=== PATIENT | male | born 1965 | race Caucasian/White ===

== ENCOUNTER 2018-06-15 07:49 | Day surgery (SDC) | payer OTHER ==
[2018-06-12 15:50] VITALS: BMI 29.7
[~2018-06-15 07:49] MED LIST: LACTATED RINGERS 1,000 ML IV SCH
[2018-06-15 09:05] VITALS: TEMP 97.8
[2018-06-15] MEDS ORDERED: LIDOCAINE 1% 20 ML VIAL (10MG/ML) FOR IV START INTRADERMA ONE (09:14)
[2018-06-15] MEDS ORDERED: PROPOFOL 10 MG/ML 20 ML VIAL IV ONE (09:54)
[2018-06-15] MEDS ORDERED: LIDOCAINE 1% INJ 10MG/ML (20 ML MDV) ONE (09:54)
--- NOTE | 2018-06-15 09:59 | P.GSHP ---
History of Present Illness H&P Date: 06/15/18 Chief Complaint: Colitis, GI bleed, abdominal pain This a 52-year-old male who presents today for colonoscopy. Patient history of colitis. He's had some intermittent rectal bleeding. He has had complaints of right left lower quadrant abdominal pain. Past Medical History Past Medical History: GERD/Reflux, Hyperlipidemia, Osteoarthritis (OA), Thyroid Disorder Additional Past Medical History / Comment(s): migraines, herniated disks, hx heart murmer, "bad acid reflux", ulcerative colitis, meghan schlatter disease History of Any Multi-Drug Resistant Organisms: None Reported Past Surgical History: Adenoidectomy, Ear Surgery, Orthopedic Surgery, Tonsillectomy Additional Past Surgical History / Comment(s): left knee to remove meghan schlatter disease, several tumors removed from back,legs and rib cage, Past Anesthesia/Blood Transfusion Reactions: Postoperative Nausea & Vomiting ( PONV) Smoking Status: Current every day smoker - Past Family History Mother Family Medical History: Cancer Father Family Medical History: Cancer Medications and Allergies Home Medications Medication Instructions Recorded Confirmed Type Albuterol Nebulizer(Dose Unkn) 1 applicate IH DAILY PRN 06/12/18 06/12/18 History Aspirin 325 mg PO DAILY PRN 06/12/18 06/12/18 History Diazepam [Valium] 10 mg PO DAILY PRN 06/12/18 06/15/18 History Mesalamine [Asacol Hd] 800 mg PO TID 06/12/18 06/12/18 History Ranitidine HCl [Zantac] 75 mg PO DAILY PRN 06/12/18 06/15/18 History Synthroid(Dose Unknown) 1 tab PO DAILY 06/12/18 06/12/18 History Allergies Allergy/AdvReac Type Severity Reaction Status Date / Time No Known Allergies Allergy Verified 06/15/18 08:48 Surgical - Exam Vital Signs Temp Pulse Resp BP Pulse Ox 97.8 F 56 L 16 132/79 99 06/15/18 09:04 06/15/18 09:04 06/15/18 09:04 06/15/18 09:04 06/15/18 09:04 - General well developed, no distress - Eyes PERRL - ENT normal pinna - Neck no masses - Respiratory normal expansion - Cardiovascular Rhythm: regular - Abdomen Abdomen: soft, non tender Assessment and Plan Assessment: History of colitis and GI bleed. We'll perform colonoscopy.
--- NOTE | 2018-06-15 10:13 | P.OP ---
Date of Procedure: 06/15/18 Preoperative Diagnosis: GI bleed Abdominal pain Postoperative Diagnosis: Right colon polyp Procedure(s) Performed: Colonoscopy Anesthesia: MAC Surgeon: Victor Hugo Alejo Pathology: other (Colon polyp) Condition: stable Disposition: PACU Description of Procedure: The patient's placed on the endoscopy table in the lateral position. He received IV sedation. Digital rectal exam was performed which revealed mild anterolateral hemorrhoids. The prostate was symmetric without nodules. The flexible colonoscope was then placed patient anus and passed throughout the entire colon. The ileocecal valve was visualized. The cecum, ascending colon appeared normal in the distal right colon just proximal hepatic flexure there was a plica polyp and this is removed with the snare. The remainder of the transverse descending and sigmoid colon appeared normal. Scope was then brought back the rectum and this appeared normal. There was no evidence of GI bleed on the colonoscopy. There were a few hemorrhoids seen.
[2018-06-15 10:43] VITALS: BP 120/80; PULSE 58; RESP 18
== END 2018-06-15 10:45 | disposition home or self-care (01) ==
LOC: ORWHC2ENDO 07:49
PROVIDERS: ATTEND Surgery
DX: D12.2 Benign neoplasm of ascending colon (principal); K64.9 Unspecified hemorrhoids; K51.90 Ulcerative colitis, unspecified, without complications; K21.9 Gastro-esophageal reflux disease without esophagitis; E78.5 Hyperlipidemia, unspecified; M19.90 Unspecified osteoarthritis, unspecified site; E07.9 Disorder of thyroid, unspecified; G43.909 Migraine, unspecified, not intractable, without status migrainosus; M92.50 Unspecified juvenile osteochondrosis of tibia and fibula; J44.9 Chronic obstructive pulmonary disease, unspecified; F39 Unspecified mood [affective] disorder; F17.200 Nicotine dependence, unspecified, uncomplicated; Z79.890 Hormone replacement therapy; Z79.899 Other long term (current) drug therapy
CPT/HCPCS: 88305; 45385; J2001; J2704